=== PATIENT | female | born 1960 | race Caucasian/White ===

== ENCOUNTER 2020-04-28 09:07 | Outpatient (CLI) | payer MEDICARE, SELFPAY ==
--- NOTE | ~2020-04-28 | US_ITS ---
EXAMINATION: US soft tissue head and neck DATE: 04/28/2020 09:42 INDICATION: Left supraclavicular lump. TECHNIQUE: Multiple grayscale and Doppler ultrasound images of the neck were obtained. COMPARISON: Chest CT 04/03/2012 FINDINGS: There are multiple enlarged left supraclavicular nodes measuring up to 2.3 x 1.1 x 1.7 cm. IMPRESSION: 1. Left supraclavicular lymphadenopathy, which may be reactive lymphadenopathy or metastatic disease. Ultrasound-guided core needle biopsy is recommended. Reviewed, dictated and finalized at location A. TRIMMER
== END 2020-04-28 09:08 | disposition home or self-care (01) ==
PROVIDERS: PCP Internal Medicine; Visit Provider Nurse Practitioner
DX: R22.2 Localized swelling, mass and lump, trunk (principal)
CPT/HCPCS: 76536

== ENCOUNTER 2020-05-17 09:05 | Outpatient (CLI) | payer MEDICARE, SELFPAY ==
--- NOTE | ~2020-05-17 | US_ITS ---
EXAMINATION: US biopsy lymph node DATE: 05/17/2020 10:04 INDICATION: Left supraclavicular lymphadenopathy. TECHNIQUE: The procedure including the risks and benefits was discussed with the patient. Risks discu ssed included bleeding and infection. The patient understood the risks and agreed to proceed. The sk in overlying the left supraclavicular region was prepped and draped in usual sterile fashion. Anesth etic was administered with 1% lidocaine subcutaneously. An 18 gauge core biopsy needle was advanced under continuous ultrasound observation to the lesion of interest. 5 core biopsy specimens were obta ined. The needle was removed and the entry site was cleaned and dressed. Post procedure ultrasound demonstrated no hemorrhage. FINDINGS: Ultrasound images demonstrate multiple hypoechoic left supraclavicular lymph nodes which ap pear slightly decreased in size when compared with the earlier study. Subsequent images demonstrate b iopsy needle advanced into 3 of the largest lymph nodes. IMPRESSION: 1. Successful Ultrasound-guided biopsy of 3 of the largest of several prominent left supraclavicular lymph nodes which appear to have decreased slightly in size since the prior study favoring reactive l ymph nodes. Reviewed, dictated and finalized at location A. IMPRESSION: 1. Successful Ultrasound-guided biopsy of 3 of the largest of several prominent left supraclavicular lymph nodes which appear to have decreased slightly in si ze since the prior study favoring reactive lymph nodes.
== END 2020-05-17 09:06 | disposition home or self-care (01) ==
PROVIDERS: PCP Internal Medicine; Visit Provider Nurse Practitioner
DX: R22.2 Localized swelling, mass and lump, trunk (principal)
CPT/HCPCS: 38505; 76942; 88305; 88341; 88342; 88364; 88365

== ENCOUNTER 2020-05-30 08:08 | Outpatient (CLI) | payer MEDICARE, SELFPAY | END 2020-05-30 08:09 | disposition home or self-care (01) | LOC: ANHCOVIDVC 08:08 | PROVIDERS: PCP Internal Medicine | DX: Z23 Encounter for immunization (principal) | CPT/HCPCS: 0001A; 91300 ==

== ENCOUNTER 2020-06-20 08:03 | Outpatient (CLI) | payer MEDICARE, SELFPAY | END 2020-06-20 08:04 | disposition home or self-care (01) | LOC: ANHCOVIDVC 08:03 | PROVIDERS: PCP Internal Medicine | DX: Z23 Encounter for immunization (principal) | CPT/HCPCS: 0002A; 91300 ==

== ENCOUNTER 2023-01-08 08:18 | Outpatient (CLI) | payer MEDICARE, SELFPAY ==
[2023-01-08 16:35] LABS: Basophils Percent Auto 0.6 % (0.2-1.2); Eosinophils Absolute Auto 0.2 K/mm3 (0-0.3); Eosinophils Percent Auto 3.3 % (0-4.4); Hematocrit 43.4 % (37.0-47.0); Immature Granulocyte Absolute 0.02 K/mm3 (0.00-0.031); Immature Granulocyte Percent A 0.4 % (0-0.5); Lymphocytes Absolute Auto 0.71 K/mm3 (0.9-3.2); Lymphocytes Percent Auto 13.8 % (18.3-44.2); Mean Corpuscular HGB Conc 27.6 g/dl (32-36); Mean Corpuscular Hemoglobin 26.3 pg (26-34); Mean Platelet Volume 12.4 fl (7.4-10.4); Monocytes Absolute Auto 0.3 K/mm3 (0.1-0.6); Neutrophils Absolute Auto 3.9 K/mm3 (1.3-6.7); Neutrophils Percent Auto 75.9 % (45.5-73.1); Platelet Count Result 226 k/mm3 (150-375); Red Blood Count 4.57 M/mm3 (4.2-5.4); White Blood Count 5.2 K/mm3 (4.5-10.0)
[2023-01-08 17:22] LABS: Hypochromasia 1+ (NORMAL); Platelet Estimate Adequate (Adequate)
[2023-01-08 17:23] LABS: Ovalocytes 1+ (NORMAL); Schistocytes None Seen (NORMAL)
[2023-01-08 17:54] LABS: Alanine Aminotransferase 30 U/L (6-35); Albumin Level 4.5 g/dL (3.5-5.1); Alkaline Phosphatase 79 U/L (38-126); Anion Gap 10 mmol/L (8-16); Aspartate Amino Transferase 92 U/L (14-36); Bilirubin,Total 0.8 mg/dL (0.2-1.3); Blood Urea Nitrogen 16 mg/dL (7-17); Calcium 9.2 mg/dL (8.4-10.2); Carbon Dioxide 30 mmol/L (22-30); Chloride 98 mmol/L (98-107); Cholesterol 143 mg/dL (0-200); Estimated Glomerular Filt Rate > 60; Glucose 140 mg/dL (65-110); HDL Direct 44 mg/dL; Potassium 4.7 mmol/L (3.4-5.0); Sodium 138 mmol/L (137-145); Triglycerides 113 mg/dL (<150)
[2023-01-08 18:05] LABS: LDL Cholesterol Direct 64 mg/dL
[2023-01-08 18:10] LABS: Creatinine Urine 104.8 mg/dL
[2023-01-08 18:36] LABS: MALB Creatinine Ratio 292.4 mg/g (0-30); Microalbumin Urine Random 306.4 mg/L (0-16.7)
[2023-01-08 19:03] LABS: Hemoglobin A1C 6.2 % (<5.7)
== END 2023-01-08 08:19 | disposition home or self-care (01) ==
LOC: ANHWCLAB 08:19
PROVIDERS: PCP Family Medicine; Visit Provider Nurse Practitioner Family
DX: E11.9 Type 2 diabetes mellitus without complications (principal); E78.2 Mixed hyperlipidemia; Z00.00 Encounter for general adult medical examination without abnormal findings
CPT/HCPCS: 36415; 80053; 80061; 82043; 83036; 85025

== ENCOUNTER 2023-03-17 23:11 | Inpatient (IN) | payer MEDICARE, SELFPAY ==
--- NOTE | ~2023-03-17 | CT_ITS ---
Clinical Indication: Dyspnea CT Scan of the Chest with Contrast: Technique: Contiguous sections were acquired throughout the chest after intravenous administration of 100 cc of Omnipaque 350. Dose reduction technique was used on this scan by utilizing automated expos ure control and iterative reconstruction technique. The dose-length product (DLP) was 1321.03 mGy-cm. Findings: There is probable right paratracheal and subcarinal lymphadenopathy. There is no filling defect in th e pulmonary arterial tree to suggest pulmonary embolus. There is no evidence of aortic dissection or aneurysm. There is no evidence of pleural or pericardial effusion. The lungs are clear, aside from probable minimal dependent atelectatic changes. Images through the upper abdomen reveal small amount of perihepatic ascites. Impression: No evidence of pulmonary embolus, aortic dissection, or aortic aneurysm. Probable minimal atelectatic changes, otherwise clear lungs. Probable right paratracheal subcarinal lymphadenopathy, nonspecific. Findings could reflect reactive/ inflammatory lymph nodes versus potentially lymphoma or other metastatic disease. Correlate clinicall y. Consider follow-up exam versus additional workup at this time, as indicated. Comparison with any p rior outside chest CTs would be useful to assess for chronicity of these nodes. Reviewed, dictated and finalized at location M. ING REPRESENTATIVE Impression: No evidence of pulmonary embolus, aortic dissection, or aortic aneurysm. Probable minimal atelectatic changes, otherwise clear lungs. Probable right paratracheal subcarinal lymphadenopathy, nonspecific. Findings c ould reflect reactive/inflammatory lymph nodes versus potentially lymphoma or o ther metastatic disease. Correlate clinically. Consider follow-up exam versus a dditional workup at this time, as indicated. Comparison with any prior outside chest CTs would be useful to assess for chronicity of these nodes.
--- NOTE | ~2023-03-17 | XR_ITS ---
Portable chest x-ray Comparison: 06/03/2015 Clinical History: Dyspnea Findings: Lungs are clear, without focal consolidation or pleural effusion. Cardiomediastinal silho uette is stable. Bones and soft tissues are unremarkable. Impression: No acute abnormality. Stable cardiomegaly and possible pulmonary artery hypertension. Reviewed, dictated and finalized at location . [employer] Impression: No acute abnormality. Stable cardiomegaly and possible pulmonary artery hypertension.
[2023-03-17 23:07] VITALS: BP 151/113; PULSE 147; RESP 20; TEMP 36.5; O2SAT 89
--- NOTE | 2023-03-17 23:10 | ECG_ITS ---
Measurements Intervals [place] Rate: 138 P: [place]: 0 QRS: -27 QRSD: 96 T: 123 QT: 289 QTc: 439 Interpretive Statements ATRIAL FIBRILLATION WITH RAPID VENTRICULAR RESPONSE ST-T WAVE ABNORMALITY IN HIGH LATERAL LEADS- CONSIDER ISCHEMIA BASELINE WANDER- I, II, AVR, AVL, V2 ABNORMAL ECG NO PREVIOUS ECG AVAILABLE FOR COMPARISON Electronically Signed On 03-18-2023 8:48:17 REHABILITATION SPECIALIST by Jono Segal D.O.
[2023-03-17 23:28] LABS: Alveolar/Arterial O2 Gradient 586.5 mmHg; Base Excess ABG 2.9 mEq/l (+/-2.0); Carboxyhemoglobin 0.8 % THb (0-2.0); Device NON-REBREATHER MASK; Fractional Inspired Oxygen 100 %; HCO3 ABG 29.9 mEq/l (22.0-26.0); Methemoglobin ABG 0.2 %THb (0-1.5); Modified Allen's Test Pass; Oxygen Content ABG 15.2 %vol (16.0-22.0); Oxygen Saturation ABG 92.2 % (95.0-100.0); Oxyhemoglobin 90.3 % THb (90.0-100.0); PCO2 ABG 57.8 mmHg (35.0-45.0); PO2 ABG 68.7 mmHg (80.0-100.0); PO2 FiO2 Ratio Arterial Blood 0.69 %; Reduced Hemoglobin 8.7 %THb (0-5.0); Site Drawn RIGHT RADIAL; Total Hemoglobin 11.9 g/dL (12.0-18.0); pH ABG 7.332 (7.350-7.450)
[2023-03-17 23:30] VITALS: PULSE 112; RESP 24; O2SAT 94; O2SAT 97
--- NOTE | 2023-03-17 23:43 | PC.NURSE ---
2322 10 mg Diltiazem administered IV push per Dr. Patricio verbal order. 2342 10 mg Diltiazem administered IV push per Dr. Patricio verbal order.
[2023-03-17 23:46] LABS: Basophils Percent Auto 0.5 % (0.2-1.2); Eosinophils Absolute Auto 0.1 K/mm3 (0-0.3); Hematocrit 41.4 % (37.0-47.0); Hemoglobin 11.2 g/dL (12.0-15.0); Immature Granulocyte Absolute 0.04 K/mm3 (0.00-0.031); Immature Granulocyte Percent A 0.6 % (0-0.5); Lymphocytes Absolute Auto 0.67 K/mm3 (0.9-3.2); Lymphocytes Percent Auto 10.3 % (18.3-44.2); Mean Corpuscular HGB Conc 27.1 g/dl (32-36); Mean Corpuscular Hemoglobin 25.6 pg (26-34); Mean Corpuscular Volume 94.7 fl (80-100); Mean Platelet Volume 12.4 fl (7.4-10.4); Monocytes Absolute Auto 0.4 K/mm3 (0.1-0.6); Monocytes Percent Auto 6.8 % (2.6-8.5); Neutrophils Absolute Auto 5.2 K/mm3 (1.3-6.7); Neutrophils Percent Auto 79.8 % (45.5-73.1); Nucleated Red Blood Cells Perc 0.5 % (0.0-0.2); Platelet Count Result 218 k/mm3 (150-375); Red Blood Count 4.37 M/mm3 (4.2-5.4); Red Cell Distribution Width 15.9 % (11.5-14.5); White Blood Count 6.5 K/mm3 (4.5-10.0)
[2023-03-17 23:55] LABS: Alanine Aminotransferase 20 U/L (6-35); Albumin Level 4.4 g/dL (3.5-5.1); Alkaline Phosphatase 78 U/L (38-126); Anion Gap 11 mmol/L (8-16); Aspartate Amino Transferase 31 U/L (14-36); Bilirubin,Total 0.7 mg/dL (0.2-1.3); Blood Urea Nitrogen 17 mg/dL (7-17); Carbon Dioxide 31 mmol/L (22-30); Chloride 98 mmol/L (98-107); Estimated CRCL calculation 98 ml/min; Estimated Glomerular Filt Rate > 60; Glucose 186 mg/dL (65-110); Potassium 4.4 mmol/L (3.4-5.0); Sodium 140 mmol/L (137-145)
[2023-03-17 23:56] LABS: INR 1.5; Prothrombin Time 19.4 Seconds (11.1-14.7)
[2023-03-17 23:57] LABS: Partial Thromboplastin Time 35.9 SECONDS (22.3-36.8)
[2023-03-17 23:58] LABS: Lactic Acid Reflex 3.2 mmol/L (0.7-2.0)
[2023-03-17 23:59] LABS: Platelet Estimate Adequate (Adequate)
[2023-03-18] VITALS (29 sets, daily range): BP systolic 114–150; BP diastolic 66–102; PULSE 87–128; RESP 14–26; TEMP 35.8–36.4; O2SAT 92–99; BMI 69.3
[2023-03-18] LABS: Hypochromasia 1+ (NORMAL)
[2023-03-18 00:01] LABS: Anisocytosis 1+ (NORMAL)
[2023-03-18 00:02] LABS: Burr Cells 1+ (NORMAL); Schistocytes None Seen (NORMAL)
[2023-03-18 00:03] LABS: D Dimer 3.22 ug/mL (<0.48); Lipase 97 U/L (23-300); Magnesium 1.5 mg/dL (1.6-2.3); Phosphorus 4.1 mg/dL (2.5-4.5)
[2023-03-18 00:08] LABS: Troponin I < 0.012 ng/mL (0.000-0.034)
[2023-03-18 00:21] LABS: Creatine Kinase 27 U/L (30-135)
[2023-03-18 01:07] LABS: NT Pro B Type Natriuretic Pept 2520 pg/mL (19.9-100)
--- NOTE | 2023-03-18 01:24 | ED.GENADULT ---
HPI - General Adult General Chief complaint: Shortness of Breath/Dyspnea Stated complaint: a-fib with rvr Time Seen by Provider: 03/17/23 23:26 History of Present Illness HPI narrative: This is a 62-year-old female presenting with shortness of breath. Patient was sitting on her sofa when she developed acute onset of shortness of breath. EMS was called found her to be satting 70% on her CPAP. She is also found in AFib with RVR with a rate of 190. They were unable to get a blood pressure at that time so gave her amiodarone 150 mg. When the patient arrived here she was saturating in the 70s. Heart rate 150 AFib with RVR. Only complaint at this time is shortness of breath but no other complaints. Related Data Home Medications Medication Instructions Recorded Confirmed lancets #50 ea 01/02/19 01/08/23 sotalol 120 mg tablet 120 mg PO Q12H 01/20/19 01/08/23 omega 0-bqb-yti-fish oil 300 1 cap PO DAILY 11/01/20 01/08/23 mg-1,000 mg capsule (Fish Oil) rivaroxaban 20 mg tablet (Xarelto) 20 mg PO DAILY 10/12/21 01/08/23 aspirin 81 mg tablet,delayed 81 mg PO DAILY 06/27/22 01/08/23 release (Adult Low Dose Aspirin) fluticasone propionate 50 1 - 2 spray intranasal DAILY PRN 01/08/23 01/08/23 mcg/actuation nasal spray,suspension (Flonase Allergy Relief) Allergies Allergy/AdvReac Type Severity Reaction Status Date / Time No Known Allergies Allergy Verified 03/18/23 02:57 [facility] Past Medical History Medical History Chronic atrial fibrillation Colostomy in place COVID-19 Essential (primary) hypertension History of colon cancer Hypovitaminosis D Mixed hyperlipidemia Morbid obesity FREDI (obstructive sleep apnea) Type 2 diabetes mellitus without complication Surgical History Surgical History History of colectomy History of partial hysterectomy Family History Family History Sibling Diabetes mellitus Father Hypertension Family history of cardiovascular disease, Onset Age: 55 Cerebrovascular accident, Onset Age: 55 Mother Family history of malignant neoplasm of ovary Other Family history of malignant neoplasm Social History Social History Smoking status: Former smoker Second hand tobacco smoke exposure: Yes Smoking end date: 02/18/82 Alcohol intake: never Substance use: never Exam Narrative: APPEARANCE: Patient is in respiratory distress. She appears chronically unwell. Older than her stated age Head: atraumatic. EYES: EOMI, NOSE: Atraumatic NECK: Trachea midline RESPIRATORY: Tachypneic, scattered crackles CARDIOVASCULAR: Tachycardic, body habitus limits exam for edema. ABDOMINAL: Soft, obese, colostomy bag in place MUSCULOSKELETAl: No obvious deformities NEURO: Alert. Moving 4/4 extremities SKIN:: Cool dry PSYCHIATRIC: Normal affect Course Vital Signs Vital signs: Vital Signs Temperature 97.7 F 03/17/23 23:07 Pulse Rate 147 H 03/17/23 23:07 Respiratory Rate 20 03/17/23 23:07 Blood Pressure 151/113 H 03/17/23 23:07 Pulse Oximetry 89 L 03/17/23 23:07 Oxygen Delivery Non-Rebreather Mask 03/17/23 23:07 Oxygen Flow Rate 15 03/17/23 23:07 Temperature 97.7 F 03/17/23 23:07 Pulse Rate 111 H 03/18/23 06:05 Respiratory Rate 23 H 03/18/23 05:20 Blood Pressure 132/96 H 03/18/23 06:05 Pulse Oximetry 97 03/18/23 05:20 Oxygen Delivery BiPAP 03/18/23 05:20 Oxygen Flow Rate 15 03/17/23 23:30 Medical Decision Making [facility] Narrative Medical decision making narrative: -Course: 62-year-old female presenting with respiratory failure and AFib with RVR. Patient placed on BiPAP. AFib with RVR controlled with diltiazem drip. Patient is already on anticoagulation. Workup showed mild uptrending troponins which
[2023-03-18] MEDS: MAGNESIUM SULF 2 GM/WATER 50ML 2 GM/50 ML BAG IVPB (01:45)
[2023-03-18] MEDS: dilTIAZem 100 MG/100 ML 100 MG/100 ML BAG IV CONT (01:47)
[2023-03-18 02:39] LABS: Reflex Lactic Acid Yes or No Add Lactic
[2023-03-18 03:38] LABS: Appearance Urine Cloudy (Clear); Bacteria Urine None Seen /hpf; Bilirubin Urine Negative (Negative); Blood Urine 3+ (Negative); Color Urine Dark Yellow (Yellow); Glucose Urine UA Negative (Negative); Ketones Urine Trace mg/dL (Negative); Leukocyte Esterase Ur Trace LEU/UL (Negative); Mucus Urine Present /lpf; Need Manual Microscopic Reviewed; Nitrate Urine Negative (Negative); Protein Urine 2+ mg/dL (Negative); RBC Urine >100 /hpf (0-2); Specific Grav Ur 1.024 (1.001-1.035); Squamous Epithelial Cell Urine None seen /hpf (Few); WBC Urine 0-5 /hpf
[2023-03-18 03:55] LABS: Add Urine Microscopic? YES
[2023-03-18 04:58] LABS: Lactic Acid 2.1 mmol/L (0.7-2.0)
[2023-03-18 05:15] LABS: Troponin I 0.109 ng/mL (0.000-0.034)
--- NOTE | 2023-03-18 09:04 | ADMGEN ---
This patient, Gabby Mosley, was admitted to IMU Room 204-01. Patient/family oriented to hospital policies and general routines including ID bracelet, bed and alarms, visiting hours, pain management, procedures, bathroom and other care routines, personal items, smoking policy, room service/diet, and visiting hours. Information on how to activate the Rapid Response Team has been discussed. Patient/Family are encouraged to report perceived risks to care and to ask questions if they do not understand what they are told or what they should do.
--- NOTE | 2023-03-18 11:02 | PM.IMHP ---
H&P: HPI History of Present Illness Date/Time: 03/18/23 11:02 Chief Complaint: Patient brought to the ER for by EMS for acute shortness of breath and palpitations Narrative: 62 years old white female with morbid obesity and chronic medical issues was sitting at her so fall at home when she suddenly developed shortness of breath. EMS was called and patient was brought to the ER for evaluation. She was initially satting 70% on her CPAP at home. She had AFib with RVR with heart rate of 190. She received amiodarone 150 mg IV and was started on BiPAP in the ER. Received 2 loading doses of IV Cardizem and started on Cardizem drip for better control of her heart rate. She denies any chest pain although she has minimally elevated cardiac enzymes. She is being admitted to the medical floor the cardiology evaluation, monitoring of cardiac enzymes, IV Cardizem drip, further management and work up. Review of Systems Review of Systems: He denies any chest fever rigor chills, nausea vomiting or loss of consciousness. She complained of shortness of breath, palpitations, feeling weak tired and fatigued All systems reviewed & are unremarkable except as noted in HPI and below PMFSH Past Medical History Medical History Chronic atrial fibrillation Colostomy in place COVID-19 Essential (primary) hypertension History of colon cancer Hypovitaminosis D Mixed hyperlipidemia Morbid obesity FREDI (obstructive sleep apnea) Type 2 diabetes mellitus without complication Surgical History Surgical History History of colectomy History of partial hysterectomy Family History Family History Sibling Diabetes mellitus Father Hypertension Family history of cardiovascular disease, Onset Age: 55 Cerebrovascular accident, Onset Age: 55 Mother Family history of malignant neoplasm of ovary Other Family history of malignant neoplasm Social History Social History Smoking status: Never smoker Second hand tobacco smoke exposure: Yes Smoking end date: 02/18/82 Alcohol intake: never Substance use: never Do You Feel Safe in your Home?: Yes Lack of Transportation: No Lack of Food: Never True Current Housing: I Have Housing Concerned About Future Housing: No Difficulty Paying Gas/Electric Bills: No Difficulty Paying for Meds: No Currently Unemployed: No Education: High School Diploma/GED Difficulty w/ Childcare or Family Care: No Spiritual care concerns: No Meds Home Medications and Allergies Home Medications Medication Instructions Recorded Confirmed Type lancets #50 ea 01/02/19 01/08/23 History sotalol 120 mg tablet 120 mg PO Q12H 01/20/19 03/18/23 History blood sugar diagnostic (OneTouch See Rx Instructions .Route 06/07/20 01/08/23 Rx Verio test strips) .COMPLEX #100 ea omega 3-ezl-qgi-fish oil 300 1 cap PO DAILY 11/01/20 03/18/23 History mg-1,000 mg capsule (Fish Oil) rivaroxaban 20 mg tablet (Xarelto) 20 mg PO DAILY 10/12/21 03/18/23 History Symbicort 80 mcg-4.5 mcg/actuation See Rx Instructions .Route 03/15/22 03/18/23 Rx HFA aerosol inhaler .COMPLEX #11 grams (budesonide-formoterol) aspirin 81 mg tablet,delayed 81 mg PO DAILY 06/27/22 03/18/23 History release (Adult Low Dose Aspirin) albuterol sulfate 90 mcg/actuation 1 - 2 inh inhalation Q4-6H PRN 07/02/22 03/18/23 Rx aerosol inhaler (Ventolin HFA) shortness of breath or wheezing #8.5 grams ezetimibe 10 mg tablet See Rx Instructions .Route 01/08/23 03/18/23 Rx .COMPLEX #90 tabs atorvastatin 10 mg tablet 10 mg PO DAILY 03/18/23 03/18/23 History lisinopril 20 mg tablet 20 mg PO BID 03/18/23 03/18/23 History metformin 1,000 mg tablet 1,000 mg PO BID 03/18/23 03/18/23 History pioglitazone 15 mg tablet 15 mg PO DAILY 03/18/23
--- NOTE | 2023-03-18 11:32 | PM.CNCAR ---
Assessment and Plan Assessment and plan (1) Atrial fibrillation with rapid ventricular response: Code(s): I48.91 - Unspecified atrial fibrillation Status: Acute Assessment and Plan: Patient with a history of paroxysmal atrial fibrillation generally doing very well on sotalol 120 mg twice daily which she is absolutely compliant. She has been maintained on systemic anticoagulation Xarelto 20 mg daily. She denies missing a single dose in this regard. She presents with acute onset AFib with RVR in acute hypoxic respiratory failure now better stabilized with better control over heart rate. She remains in AFib on diltiazem infusion 15 milligrams/hour. Sotalol has yet to be resumed since admission from the ER. At length we discussed multiple options with regards to medical management and control of atrial fibrillation. We discussed alternative antiarrhythmic therapy, however, if discontinuation of sotalol were to be entertained she would require washout peripherally for least 4 days prior to initiation of alternative. That being said am not convinced this necessarily represents a complete failure of her sotalol yet she did have a significant recurrence in which he was highly symptomatic which raises this possibility. Discussed attempting to avoid concomitant AV estrella blocking agents with the use of sotalol, however, this may be reasonable as tolerated as an alternative. We also discussed cardioversion to restore sinus rhythm. Given her underlying O2 dependence, COPD, morbid obesity, FREDI on CPAP if this were to be entertained cardioversion ideal with Anesthesiology utilizing propofol would be the safest management strategy. At this time I recommend resumption of sotalol 120 mg twice daily. Will attempt to wean diltiazem off with regards to heart rate control and symptoms further recommendations to follow. Patient verbalized understanding and agreed with plan of care. All questions answered to her satisfaction. With heart rates better controlled repeat 2D echocardiogram to assess LV function, chamber size, valve pathology pulmonary pressures warranted. TSH normal 3.070. We discussed concerning nature of her presentation as she has never had experienced similar to this related to atrial fibrillation with RVR. Need to exclude acute coronary syndrome although appears less likely given symptoms we need to trend troponins, obtain echocardiogram for further recommendation to follow. (2) Elevated troponin: Code(s): R79.89 - Other specified abnormal findings of blood chemistry Status: Acute Assessment and Plan: Mild troponin elevation without anginal symptoms most likely consistent with demand ischemia in setting of AFib with RVR in hypoxic respiratory failure without suggestive of acute coronary syndrome and/or plaque rupture. Trend troponin, repeat 12 lead ECG. Patient has no known history of underlying CAD. Depending on troponin trend and echocardiogram may consider ischemic evaluation on outpatient basis. If significant troponin elevation is noted be on further recommendations regarding ischemic evaluation will be forthcoming. She is fully anticoagulated on Xarelto at this time nonetheless and if invasive angiography were felt to be warranted this would need to be held for 48 hours to reduce bleeding risk associated with invasive procedure (3) Acute respiratory failure with hypoxia and hypercapnia: Code(s): J96.01 - Acute respiratory failure with hypoxia; J96.02 - Acute respiratory failure with hypercapnia Status: Acute Assessment and Plan: Patient presented with acute life-threatening hypoxic respiratory failure in AFib with RVR requiring continuous BiPAP and additional O2 supplementation in now improved but remains above baseline on 5 L nasal cannula. Patient chronic respiratory failure on 3 L nasal cannula at home at rest. Continue bronchodilator therapy as warranted, Advair, O2 supplementation and noninva
[2023-03-18] MEDS: ASPIRIN 81 MG ENTERIC TABLET PO (12:04)
[2023-03-18] MEDS: SOTALOL HCL 40 MG TABLET 120 MG PO ×2 (12:04→19:53)
[2023-03-18] MEDS: PIOGLITAZONE HCL 15 MG TAB PO (12:05)
[2023-03-18] MEDS: OMEGA 3 POLYUNSAT FATTY ACIDS 1 GM CAP PO (12:05)
[2023-03-18] MEDS: ATORVASTATIN 10 MG TABLET PO (12:05)
[2023-03-18] MEDS: EZETIMIBE 10 MG TABLET BY MOUTH (12:05)
--- NOTE | 2023-03-18 12:24 | ECHO_ITS ---
Patient Info Name: Gabby Mosley Age: 62 years : 1960 Gender: Female Ht: 65 in Wt: 416 lbs BSA: 3.08 m2 HR: 78 bpm BP: 135 / 94 mmHg Heart Rhythm: Atrial Fibrillation Technical Quality: Fair Exam Date: 03/18/2023 3:05 PM Exam Location: Echo Lab Exam Room: [facility] Patient Status: Inpatient Admit Date: 03/18/2023 Staff Ordering Physician: Wilner Damian MD Ux Design Manager: Kandice Iverson RDCS Attending Provider: Jorge Ma MD Referring Physician: Rickie HAMPTON; Exam Type: CA echo dop color flow w con Study Info Indications - afib rvr elevated troponins Complete two-dimensional, color flow and Doppler transthoracic echocardiogram is performed with contrast to opacify the left ventricle and to improve the deliniation of the left ventricle endocardial borders. Contrast/Agitated Saline Contrast/Ag. Saline: Definity Amount: 3.00 ml Administered By: Kandice Iverson [facility] Existing IV Access: Yes IV Access Condition: patent with no signs of infiltration Summary 1. Technically difficult study with limited views. Definity contrast administered. 2. Left ventricular chamber dimension is normal. 3. Left ventricular systolic function is hyperdynamic, estimated at >70%. 4. There is moderately increased left ventricular wall thickness. 5. The left ventricular diastolic function is indeterminate. 6. Left atrial chamber dimension is moderately enlarged. 7. Right atrial chamber dimension is severely enlarged. 8. There is no aortic valve stenosis. 9. There is mild mitral valve regurgitation. 10. There is mild tricuspid valve regurgitation. 11. Severe pulmonary hypertension, estimated pulmonary arterial systolic pressure is 71 mmHg. Left Ventricle Left ventricular chamber dimension is normal. Left ventricular systolic function is hyperdynamic, estimated at >70%. There is moderately increased left ventricular wall thickness. The left ventricular diastolic function is indeterminate. Technically difficult study with limited views. Definity contrast administered. Right Ventricle Right ventricular chamber dimension is normal. Right ventricular systolic function is reduced. Left Atria Left atrial chamber dimension is moderately enlarged. Right Atria Right atrial chamber dimension is severely enlarged. Aortic Valve The aortic valve is trileaflet. There is mild aortic valve sclerosis. There is no aortic valve stenosis. There is no aortic valve regurgitation. Pulmonic Valve The pulmonic valve is not well visualized. There is trace pulmonic regurgitation. Mitral Valve The mitral valve has normal leaflets. There is mild mitral valve regurgitation. The mitral valve annulus is mildly calcified. Tricuspid Valve The tricuspid valve leaflets are normal. There is mild tricuspid valve regurgitation. Severe pulmonary hypertension, estimated pulmonary arterial systolic pressure is 71 mmHg. Pericardium/Pleural The pericardium appears not well visualized. There is no pericardial effusion. Inferior Vena Cava Normal inferior vena cava with >50% collapse upon inspiration consistent with elevated right atrial pressure, 10 mmHg. Aorta The aortic root size at the sinus of Valsalva is normal. There is mild aortic atherosclerosis. Left Ventricular Outflow Tract Name Value Normal LVOT 2D
[2023-03-18 12:26] LABS: Basophils Percent Auto 0.5 % (0.2-1.2); Eosinophils Absolute Auto 0.2 K/mm3 (0-0.3); Eosinophils Percent Auto 2.9 % (0-4.4); Hematocrit 39.3 % (37.0-47.0); Hemoglobin 11.1 g/dL (12.0-15.0); Immature Granulocyte Absolute 0.03 K/mm3 (0.00-0.031); Immature Granulocyte Percent A 0.5 % (0-0.5); Lymphocytes Absolute Auto 0.76 K/mm3 (0.9-3.2); Lymphocytes Percent Auto 13.6 % (18.3-44.2); Mean Corpuscular HGB Conc 28.2 g/dl (32-36); Mean Corpuscular Hemoglobin 25.6 pg (26-34); Mean Corpuscular Volume 90.8 fl (80-100); Mean Platelet Volume 12.3 fl (7.4-10.4); Monocytes Absolute Auto 0.4 K/mm3 (0.1-0.6); Monocytes Percent Auto 7.9 % (2.6-8.5); Neutrophils Absolute Auto 4.2 K/mm3 (1.3-6.7); Neutrophils Percent Auto 74.6 % (45.5-73.1); Platelet Count Result 196 k/mm3 (150-375); Red Blood Count 4.33 M/mm3 (4.2-5.4); White Blood Count 5.6 K/mm3 (4.5-10.0)
--- NOTE | 2023-03-18 12:27 | ECG_ITS ---
Measurements Intervals [place] Rate: 95 P: [place]: 0 QRS: -20 QRSD: 102 T: 135 QT: 319 QTc: 401 Interpretive Statements ATRIAL FIBRILLATION NONSPECIFIC ST & T-WAVE ABNORMALITY- ANTEROLAT/HIGH LAT LEADS BASELINE ARTIFACT- V3 ABNORMAL ECG COMPARED TO ECG 03/17/2023 23:11:24 HEART RATE HAS DECREASED Electronically Signed On 03-18-2023 14:10:38 [employer] by Jono Segal D.O.
[2023-03-18 12:38] LABS: Magnesium 1.8 mg/dL (1.6-2.3); Phosphorus 3.5 mg/dL (2.5-4.5)
[2023-03-18] MEDS: dilTIAZem 100 MG/100 ML 100 MG/100 ML BAG 10 MG IV CONT (12:50)
[2023-03-18 12:51] LABS: Troponin I 0.123 ng/mL (0.000-0.034)
[2023-03-18 12:53] LABS: Glucose Point of Care 105 mg/dl (65-105)
[2023-03-18] MEDS: PERFLUTREN LIPID MICROSPHERES 1.5 ML VIAL DILUTED TO 10 ML TOTAL VOLUME IV PUSH (15:50)
--- NOTE | 2023-03-18 16:08 | IVDEFINITY ---
Prior to administration of IV Definity the patient was educated on the risks and benefits of the imaging enhancing agent including potential adverse side effects. The patient verbalized understanding. Allergies were verified. No exclusion criteria were identified and at least one of the following inclusion criteria were met: 1) physician request, 2) patient technically difficult to image (per the [place] [employer] guidelines of two or more segments not discernable within the apical view), or 3) questionable left ventricular function. ?
[2023-03-18 16:42] LABS: Glucose Point of Care 131 mg/dl (65-105)
[2023-03-18] MEDS: lisinopriL 20 MG TABLET PO (17:50)
[2023-03-18] MEDS: RIVAROXABAN 20 MG TABLET PO (18:29)
--- NOTE | 2023-03-18 19:10 | PC.NURSE ---
Pt told nurse she ambulated with the help of her spouse and no help from staff to the bedside commode. Pt and spouse informed to not ambulate without the help of staff for safety precautions. Per CCT pt spouse suspected of turning off bed alarm. Nurse also informed pt and spouse that the bed alarm was turned back on for safety. Pt and spouse both verbalized understanding.
[2023-03-18] MEDS: FLUTICASONE/SALMETEROL 115-21 MCG INHALER 1 PUFF 2 PUFF INHALATION (20:31)
[2023-03-18 20:51] LABS: Glucose Point of Care 126 mg/dl (65-105)
[2023-03-19] VITALS (26 sets, daily range): BP systolic 110–138; BP diastolic 50–91; PULSE 89–111; RESP 18–22; TEMP 35.9–36.6; O2SAT 91–97
[2023-03-19] MEDS: dilTIAZem 100 MG/100 ML 100 MG/100 ML BAG 10 MG IV CONT ×2 (02:16→12:56)
[2023-03-19 05:14] LABS: Basophils Percent Auto 0.5 % (0.2-1.2); Eosinophils Absolute Auto 0.1 K/mm3 (0-0.3); Eosinophils Percent Auto 2.4 % (0-4.4); Hematocrit 34.4 % (37.0-47.0); Hemoglobin 9.7 g/dL (12.0-15.0); Immature Granulocyte Absolute 0.02 K/mm3 (0.00-0.031); Immature Granulocyte Percent A 0.5 % (0-0.5); Lymphocytes Absolute Auto 0.75 K/mm3 (0.9-3.2); Lymphocytes Percent Auto 18.1 % (18.3-44.2); Mean Corpuscular HGB Conc 28.2 g/dl (32-36); Mean Corpuscular Hemoglobin 25.8 pg (26-34); Mean Corpuscular Volume 91.5 fl (80-100); Mean Platelet Volume 12.6 fl (7.4-10.4); Monocytes Absolute Auto 0.4 K/mm3 (0.1-0.6); Monocytes Percent Auto 9.4 % (2.6-8.5); Neutrophils Absolute Auto 2.9 K/mm3 (1.3-6.7); Neutrophils Percent Auto 69.1 % (45.5-73.1); Platelet Count Result 187 k/mm3 (150-375); Red Blood Count 3.76 M/mm3 (4.2-5.4); Red Cell Distribution Width 16.2 % (11.5-14.5); White Blood Count 4.2 K/mm3 (4.5-10.0)
[2023-03-19 05:28] LABS: Anion Gap 8 mmol/L (8-16); Blood Urea Nitrogen 15 mg/dL (7-17); Calcium 8.7 mg/dL (8.4-10.2); Carbon Dioxide 34 mmol/L (22-30); Chloride 98 mmol/L (98-107); Estimated CRCL calculation 109 ml/min; Estimated Glomerular Filt Rate > 60; Glucose 116 mg/dL (65-110); Sodium 140 mmol/L (137-145)
[2023-03-19 05:52] LABS: Anisocytosis 1+ (NORMAL); Hypochromasia 1+ (NORMAL); Macrocytosis 1+ (NORMAL); Platelet Estimate Adequate (Adequate); Polychromasia 1+ (NORMAL); Schistocytes None Seen (NORMAL)
[2023-03-19 07:56] LABS: Glucose Point of Care 107 mg/dl (65-105)
[2023-03-19] MEDS: OMEGA 3 POLYUNSAT FATTY ACIDS 1 GM CAP PO (08:10)
[2023-03-19] MEDS: ASPIRIN 81 MG ENTERIC TABLET PO (08:10)
[2023-03-19] MEDS: PIOGLITAZONE HCL 15 MG TAB PO (08:10)
[2023-03-19] MEDS: lisinopriL 20 MG TABLET PO ×2 (08:10→17:00)
[2023-03-19] MEDS: ATORVASTATIN 10 MG TABLET PO (08:10)
[2023-03-19] MEDS: SOTALOL HCL 40 MG TABLET 120 MG PO ×2 (08:10→20:15)
[2023-03-19] MEDS: EZETIMIBE 10 MG TABLET BY MOUTH (08:11)
[2023-03-19] MEDS: FLUTICASONE/SALMETEROL 115-21 MCG INHALER 1 PUFF 2 PUFF INHALATION ×2 (09:04→19:40)
[2023-03-19 09:27] LABS: Troponin I 0.073 ng/mL (0.000-0.034)
--- NOTE | 2023-03-19 10:01 | PDONCCN ---
HPI - Date of Consult Date/Time: 03/19/23 16:24 <Jeffy Davila - 03/19/23 16:26> 03/19/23 10:01 <Yvonne Green - 03/19/23 10:07> Requesting Physician: Jorge Ma MD <Jeffy Davila - 03/19/23 16:26> Jorge Ma MD <Yvonne Green - 03/19/23 10:07> Primary Care Provider: Sloan Simms MD <Jeffy Davila - 03/19/23 16:26> Sloan Simms MD <Yvonne Green - 03/19/23 10:07> - Consult Narrative Reason for consult: Lymphadenopathy <Yvonne Green - 03/19/23 10:07> Narrative: Gabby Mosley is a 62 year old female <Jeffy Davila - 03/19/23 16:26> Gabby Mosley is a 62 year old female with a past medical history of morbid obesity, Afib, DM2, HTN, HLD, COPD, FREDI, and asthma. She called EMS after being short of breath. She was found to be in Afib with RVR on presentation to the ED and was put on a Dilt drip. She has a history of Afib and has been on sotalol for maintenance and has been tolerating that well. She is typically on 3L at home and 5L with exertion NC. She is on 5L NC at rest right now. She has a history of colon cancer in [id number]. She underwent 5FU chemotherapy and radiation prior to surgery. She then went under surgical resection and 1 lymphnode was found to be positive. She then underwent chemotherapy again but unsure what kind she got. Her last colonoscopy was in . She denies any blood in her stool or urine. Denies a true smoking history but has been around second hand smoke. Denies fatigue, weight loss, or night sweats. Denies frequent infections. She endorses wanting to lose weight due to her immobility. <Yvonne Green - 03/19/23 10:16> Review of Systems - Review of Systems All systems reviewed & are unremarkable except as noted in HPI and bel <Samir Greenne 03/19/23 10:07> - Neurologic Reports system reviewed and no additional complaints, except as documented <NormaYvonne 03/19/23 10:07> [facility] Medical History: Medical History (Last Reviewed 03/18/23 @ 11:32 by Wilner Damian MD) Chronic atrial fibrillation Colostomy in place COVID-19 Essential (primary) hypertension History of colon cancer Hypovitaminosis D Mixed hyperlipidemia Morbid obesity FREDI (obstructive sleep apnea) Type 2 diabetes mellitus without complication <Jeffy Davila - 03/19/23 16:26> Medical History (Last Reviewed 03/18/23 @ 11:32 by Wilner Damian MD) Chronic atrial fibrillation Colostomy in place COVID-19 Essential (primary) hypertension History of colon cancer Hypovitaminosis D Mixed hyperlipidemia Morbid obesity FREDI (obstructive sleep apnea) Type 2 diabetes mellitus without complication <TaekirstenYvonne 03/19/23 10:07> Surgical History: Surgical History (Last Reviewed 03/18/23 @ 11:32 by Wilner Damian MD) History of colectomy History of partial hysterectomy <Jeffy Davila - 03/19/23 16:26> Surgical History (Last Reviewed 03/18/23 @ 11:32 by Wilner Damian MD) History of colectomy History of partial hysterectomy <TaekirstenYvonne - 03/19/23 10:07> Family History: Family History (Last Reviewed 03/18/23 @ 11:32 by Wilner Damian MD) Sibling Diabetes mellitus Father Hypertension Family history of cardiovascular disease, Onset Age: 55 Cerebrovascular accident, Onset Age: 55 Mother Family history of malignant neoplasm of ovary Other Family history of malignant neoplasm <Jeffy Davila - 03/19/23 16:26> Family History (Last Reviewed 03/18/23 @ 11:32 by Wilner Damian MD) Sibling Diabetes mellitus Father Hypertension Family history of cardiovascular disease, Onset Age: 55 Cerebrovascular accident, Onset Age: 55 Mother Family history of malignant neoplasm of ovary Other Family history of malignant neoplasm <NormaYvonne 03/19/23 10:07> -
[2023-03-19 11:54] LABS: Glucose Point of Care 138 mg/dl (65-105)
[2023-03-19 13:07] LABS: Iron 51 ug/dL (37-170)
[2023-03-19 13:16] LABS: Percent Iron Saturation 11 % (20-50)
[2023-03-19 13:32] LABS: Carcinoembryonic Antigen 0.4 ng/mL (0.0-3.0)
[2023-03-19 13:43] LABS: Ferritin 9.91 ng/mL (11.1-264)
[2023-03-19 13:58] LABS: Folic Acid 15.1 ng/mL (2.76->20)
[2023-03-19 16:13] LABS: Glucose Point of Care 159 mg/dl (65-105)
[2023-03-19] MEDS: RIVAROXABAN 20 MG TABLET PO (17:00)
--- NOTE | 2023-03-19 18:49 | PM.IMPN ---
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 use Qualified Code(s): E11.9 - Type 2 diabetes mellitus without complications Code(s): E11.9 - Type 2 diabetes mellitus without complications Status: Acute (5) SOB (shortness of breath): Code(s): R06.02 - Shortness of breath Status: Acute (6) Pulmonary hypertension: Code(s): I27.20 - Pulmonary hypertension, unspecified Status: Acute (7) FREDI (obstructive sleep apnea): Code(s): G47.33 - Obstructive sleep apnea (adult) (pediatric) Status: Acute (8) Morbid obesity: Code(s): E66.01 - Morbid (severe) obesity due to excess calories Status: Acute (9) Mixed hyperlipidemia: Code(s): E78.2 - Mixed hyperlipidemia Status: Acute (10) History of colon cancer: Code(s): Z85.038 - Personal history of other malignant neoplasm of large intestine Status: Acute (11) History of colectomy: Code(s): Z90.49 - Acquired absence of other specified parts of digestive tract Status: Acute (12) Essential (primary) hypertension: Code(s): I10 - Essential (primary) hypertension Status: Acute (13) Chronic obstructive pulmonary disease: Qualifiers: COPD type: unspecified COPD Qualified Code(s): J44.9 - Chronic obstructive pulmonary disease, unspecified Code(s): J44.9 - Chronic obstructive pulmonary disease, unspecified Status: Acute (14) Chronic atrial fibrillation: Code(s): I48.20 - Chronic atrial fibrillation, unspecified Status: Acute (15) BMI 60.0-69.9, adult: Code(s): Z68.44 - Body mass index [BMI] 60.0-69.9, adult Status: Acute (16) Abnormal CT scan, chest: Code(s): R93.89 - Abnormal findings on diagnostic imaging of other specified body structures Status: Acute Plan Admit patient to IMU under full inpatient status Continuous cardiac tele-monitoring Patient given 10 mg IV Cardizem bolus x2 in the ER Patient started on IV Cardizem drip to be titrated to keep heart rate around 100 Patient likely has the myocardial demand ischemia caused by rapid AFib and shortness of breath EKG was done in ER which showed AFib with RVR as well as ST T wave abnormalities with high lateral leads consider with possible ischemia 1st set of cardiac enzymes is negative, following sets of cardiac enzymes were minimally elevated and are slowly downtrending Full 2-D echo with color-flow and doppler ordered to evaluate cardiac structure and function which showed left ventricle systolic function, hyperdynamic, with estimated EF greater than 70% Cardiology consultation for evaluation, further treatment recommendations and work up No evidence of Pneumonia or pulmonary embolism on chest x-ray and chest CTA CTA chest done which showed probable right paratracheal subcarinal lymphadenopathy pointing towards possible lymphoma or metastatic treatment recommendations Patient has a history prior colon cancer status post colostomy Oncology evaluation ordered who evaluated the patient and plan to follow-up with her as an outpatient Oncology workup ordered which showed severe iron deficiency anemia and vitamin B12 deficiency IV iron infusions ordered 300 mg daily for 3 days Subcutaneous cyanocobalamin injections ordered daily as well Continue with colostomy care on floor PT/OT evaluation ordered DC planning once
[2023-03-19 20:00] LABS: Glucose Point of Care 147 mg/dl (65-105)
[2023-03-19] MEDS: WATER FOR IRRIGATION, STERILE 1,000 ML BOTTLE 1000 ML (20:12)
[2023-03-19] MEDS: CYANOCOBALAMIN INJ 1,000 MCG/ML VIAL 1000 MCG IM (20:15)
[2023-03-19] MEDS: ACETAMINOPHEN 325 MG TABLET 650 MG PO (20:15)
[2023-03-20] VITALS (31 sets, daily range): BP systolic 104–137; BP diastolic 59–90; PULSE 70–110; RESP 20–24; TEMP 35.8–36.6; O2SAT 83–100
[2023-03-20] MEDS: ACETAMINOPHEN 325 MG TABLET 650 MG PO ×2 (02:19→22:15)
[2023-03-20 05:01] LABS: Basophils Percent Auto 0.6 % (0.2-1.2); Eosinophils Absolute Auto 0.1 K/mm3 (0-0.3); Eosinophils Percent Auto 2.8 % (0-4.4); Hematocrit 34.9 % (37.0-47.0); Hemoglobin 9.5 g/dL (12.0-15.0); Immature Granulocyte Absolute 0.03 K/mm3 (0.00-0.031); Immature Granulocyte Percent A 0.9 % (0-0.5); Lymphocytes Absolute Auto 0.81 K/mm3 (0.9-3.2); Lymphocytes Percent Auto 23.1 % (18.3-44.2); Mean Corpuscular HGB Conc 27.2 g/dl (32-36); Mean Corpuscular Hemoglobin 25.3 pg (26-34); Mean Corpuscular Volume 93.1 fl (80-100); Mean Platelet Volume 11.8 fl (7.4-10.4); Monocytes Absolute Auto 0.4 K/mm3 (0.1-0.6); Monocytes Percent Auto 11.7 % (2.6-8.5); Neutrophils Absolute Auto 2.1 K/mm3 (1.3-6.7); Neutrophils Percent Auto 60.9 % (45.5-73.1); Platelet Count Result 168 k/mm3 (150-375); Red Blood Count 3.75 M/mm3 (4.2-5.4); Red Cell Distribution Width 16.1 % (11.5-14.5); White Blood Count 3.5 K/mm3 (4.5-10.0)
[2023-03-20 05:10] LABS: Anion Gap 6 mmol/L (8-16); Blood Urea Nitrogen 14 mg/dL (7-17); Calcium 8.7 mg/dL (8.4-10.2); Carbon Dioxide 36 mmol/L (22-30); Chloride 99 mmol/L (98-107); Estimated CRCL calculation 124 ml/min; Estimated Glomerular Filt Rate > 60; Glucose 118 mg/dL (65-110); Potassium 3.9 mmol/L (3.4-5.0); Sodium 141 mmol/L (137-145)
[2023-03-20 05:50] LABS: Anisocytosis 1+ (NORMAL); Hypochromasia 1+ (NORMAL); Ovalocytes 1+ (NORMAL); Platelet Estimate Adequate (Adequate); Schistocytes None Seen (NORMAL)
[2023-03-20 09:01] LABS: Glucose Point of Care 111 mg/dl (65-105)
[2023-03-20] MEDS: dilTIAZem 100 MG/100 ML 100 MG/100 ML BAG 10 MG IV CONT ×3 (09:08→19:10)
[2023-03-20] MEDS: lisinopriL 20 MG TABLET PO ×2 (09:10→17:52)
[2023-03-20] MEDS: ASPIRIN 81 MG ENTERIC TABLET PO (09:10)
[2023-03-20] MEDS: ATORVASTATIN 10 MG TABLET PO (09:10)
[2023-03-20] MEDS: EZETIMIBE 10 MG TABLET BY MOUTH (09:10)
[2023-03-20] MEDS: PIOGLITAZONE HCL 15 MG TAB PO (09:10)
[2023-03-20] MEDS: OMEGA 3 POLYUNSAT FATTY ACIDS 1 GM CAP PO (09:11)
[2023-03-20] MEDS: TOLNAFTATE 1% POWDER 45 GM BTL 1 APPLIC TOPICAL (09:14)
[2023-03-20] MEDS: FLUTICASONE/SALMETEROL 115-21 MCG INHALER 1 PUFF 2 PUFF INHALATION ×2 (09:48→21:35)
[2023-03-20] MEDS: SOTALOL HCL 40 MG TABLET PO ×3 (10:22→20:15)
[2023-03-20] MEDS: SOTALOL HCL 80 MG TABLET PO ×2 (10:22→22:02)
[2023-03-20 11:12] LABS: Glucose Point of Care 171 mg/dl (65-105)
--- NOTE | 2023-03-20 13:01 | PM.PNCARD ---
Progress Note: A&P Assessment and Plan (1) Atrial fibrillation with rapid ventricular response: Code(s): I48.91 - Unspecified atrial fibrillation Status: Acute Assessment and Plan: Patient with a history of paroxysmal atrial fibrillation generally doing very well on sotalol 120 mg twice daily which she is absolutely compliant. She has been maintained on systemic anticoagulation Xarelto 20 mg daily. She denies missing a single dose in this regard. She presents with acute onset AFib with RVR in acute hypoxic respiratory failure now better stabilized with better control over heart rate. She remains in AFib on diltiazem infusion 15 milligrams/hour. Sotalol has yet to be resumed since admission from the ER. Once again, at length we discussed multiple options with regards to medical management and control of atrial fibrillation. We discussed alternative antiarrhythmic therapy, however, if discontinuation of sotalol were to be entertained she would require washout peripherally for least 4 days prior to initiation of alternative. That being said am not convinced this necessarily represents a complete failure of her sotalol yet she did have a significant recurrence in which he was highly symptomatic which raises this possibility. Discussed attempting to avoid concomitant AV estrella blocking agents with the use of sotalol, however, this may be reasonable as tolerated as an alternative. We also discussed cardioversion to restore sinus rhythm. After lengthy discussion with included the following. Given her underlying O2 dependence, COPD, morbid obesity, FREDI on CPAP proceeding with elective cardioversion in attempt to restore sinus rhythm with the assistance of Anesthesiology will be the best management strategy. All given additional sotalol 40 mg p.o. x1 to equal 160 mg this morning. Will observe response on diltiazem infusion. Plan will be to discharge home with sotalol 160 mg the morning 120 mg in the evening without additional AV estrella blocking agents. Discontinuation of sotalol in favor of alternative antiarrhythmic would require prolonged hospitalization for washout of sotalol prior to initiation of an alternative strategy. Therefore, we will proceed with her current medications with adjustments as above. Discussed at length the patient verbalized understanding. Patient will be NPO after midnight. She does not require JACQUIE guidance as she has not missed a single dose of anticoagulation for greater than 4 weeks. She may use CPAP for support during sedation with Anesthesiology tomorrow. (2) Elevated troponin: Code(s): R79.89 - Other specified abnormal findings of blood chemistry Status: Acute Assessment and Plan: Mild troponin elevation without anginal symptoms most likely consistent with demand ischemia in setting of AFib with RVR in hypoxic respiratory failure without suggestive of acute coronary syndrome and/or plaque rupture. Trend troponin, repeat 12 lead ECG. Patient has no known history of underlying CAD. Depending on troponin trend and echocardiogram may consider ischemic evaluation on outpatient basis. If significant troponin elevation is noted be on further recommendations regarding ischemic evaluation will be forthcoming. She is fully anticoagulated on Xarelto at this time nonetheless and if invasive angiography were felt to be warranted this would need to be held for 48 hours to reduce bleeding risk associated with invasive procedure (3) Acute respiratory failure with hypoxia and hypercapnia: Code(s): J96.01 - Acute respiratory failure with hypoxia; J96.02 - Acute respiratory failure with hypercapnia Status: Acute Assessment and Plan: Patient presented with acute life-threatening hypoxic respiratory failure in AFib with RVR requiring continuous BiPAP and additional O2 supplementation in now improved but remains above baseline on 5 L nasal cannula. Patient chronic respiratory failure on 3
[2023-03-20] MEDS: CYANOCOBALAMIN INJ 1,000 MCG/ML VIAL 1000 MCG IM (13:19)
[2023-03-20 16:22] LABS: Glucose Point of Care 161 mg/dl (65-105)
[2023-03-20] MEDS: RIVAROXABAN 20 MG TABLET PO (17:52)
--- NOTE | 2023-03-20 19:20 | P.PNIM_ITS ---
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 Qualified Code(s): E11.9 - Type 2 diabetes mellitus without complications Code(s): E11.9 - Type 2 diabetes mellitus without complications Status: Acute (5) SOB (shortness of breath): Code(s): R06.02 - Shortness of breath Status: Acute (6) Pulmonary hypertension: Code(s): I27.20 - Pulmonary hypertension, unspecified Status: Acute (7) FREDI (obstructive sleep apnea): Code(s): G47.33 - Obstructive sleep apnea (adult) (pediatric) Status: Acute (8) Morbid obesity: Code(s): E66.01 - Morbid (severe) obesity due to excess calories Status: Acute (9) Mixed hyperlipidemia: Code(s): E78.2 - Mixed hyperlipidemia Status: Acute (10) History of colon cancer: Code(s): Z85.038 - Personal history of other malignant neoplasm of large intestine Status: Acute (11) History of colectomy: Code(s): Z90.49 - Acquired absence of other specified parts of digestive tract Status: Acute (12) Essential (primary) hypertension: Code(s): I10 - Essential (primary) hypertension Status: Acute (13) Chronic obstructive pulmonary disease: Qualifiers: COPD type: unspecified COPD Qualified Code(s): J44.9 - Chronic obstructive pulmonary disease, unspecified Code(s): J44.9 - Chronic obstructive pulmonary disease, unspecified Status: Acute (14) Chronic atrial fibrillation: Code(s): I48.20 - Chronic atrial fibrillation, unspecified Status: Acute (15) BMI 60.0-69.9, adult: Code(s): Z68.44 - Body mass index [BMI] 60.0-69.9, adult Status: Acute (16) Abnormal CT scan, chest: Code(s): R93.89 - Abnormal findings on diagnostic imaging of other specified body structures Status: Acute Plan Admit patient to IMU under full inpatient status Continuous cardiac tele-monitoring Patient given 10 mg IV Cardizem bolus x2 in the ER Patient started on IV Cardizem drip to be titrated to keep heart rate around 100 Had sotalol and cardiac meds adjusted in an attempt to get her off of IV Cardizem drip Keep patient NPO after midnight for cardioversion in am Patient likely has the myocardial demand ischemia caused by rapid AFib and shortness of breath EKG was done in ER which showed AFib with RVR as well as ST T wave abnormalities with high lateral leads consider with possible ischemia 1st set of cardiac enzymes is negative, following sets of cardiac enzymes were minimally elevated and are slowly downtrending Full 2-D echo with color-flow and doppler ordered to evaluate cardiac structure and function which showed left ventricle systolic function, hyperdynamic, with estimated EF greater than 70% CTA chest done which showed probable right paratracheal subcarinal lymphadenopathy pointing towards possible lymphoma or metastatic treatment recommendations Patient has a history prior colon cancer status post colostomy Oncology evaluation ordered
[2023-03-20] MEDS: IRON SUCROSE COMPLEX 500 MG in SODIUM CHLORIDE 0.9% IV 250 ML 183.33 MG IVPB (20:15)
[2023-03-20 20:41] LABS: Glucose Point of Care 136 mg/dl (65-105)
[2023-03-21] VITALS (26 sets, daily range): BP systolic 99–150; BP diastolic 62–79; PULSE 50–106; RESP 16–22; TEMP 36–36.8; O2SAT 88–100
[2023-03-21] MEDS: dilTIAZem 100 MG/100 ML 100 MG/100 ML BAG 10 MG IV CONT ×2 (04:08→11:08)
[2023-03-21] MEDS: ACETAMINOPHEN 325 MG TABLET 650 MG PO ×2 (04:09→21:08)
[2023-03-21 05:37] LABS: Basophils Percent Auto 0.5 % (0.2-1.2); Eosinophils Absolute Auto 0.1 K/mm3 (0-0.3); Eosinophils Percent Auto 3.2 % (0-4.4); Hematocrit 35.6 % (37.0-47.0); Immature Granulocyte Absolute 0.04 K/mm3 (0.00-0.031); Immature Granulocyte Percent A 0.9 % (0-0.5); Lymphocytes Absolute Auto 0.84 K/mm3 (0.9-3.2); Lymphocytes Percent Auto 18.9 % (18.3-44.2); Mean Corpuscular HGB Conc 28.1 g/dl (32-36); Mean Corpuscular Hemoglobin 25.6 pg (26-34); Mean Platelet Volume 12.4 fl (7.4-10.4); Monocytes Absolute Auto 0.4 K/mm3 (0.1-0.6); Monocytes Percent Auto 9.7 % (2.6-8.5); Neutrophils Percent Auto 66.8 % (45.5-73.1); Platelet Count Result 197 k/mm3 (150-375); Red Blood Count 3.91 M/mm3 (4.2-5.4); Red Cell Distribution Width 16.2 % (11.5-14.5); White Blood Count 4.4 K/mm3 (4.5-10.0)
[2023-03-21 05:51] LABS: Anion Gap 5 mmol/L (8-16); Blood Urea Nitrogen 15 mg/dL (7-17); Calcium 8.7 mg/dL (8.4-10.2); Carbon Dioxide 36 mmol/L (22-30); Chloride 98 mmol/L (98-107); Estimated CRCL calculation 109 ml/min; Estimated Glomerular Filt Rate > 60; Glucose 127 mg/dL (65-110); Potassium 4.2 mmol/L (3.4-5.0); Sodium 139 mmol/L (137-145)
[2023-03-21 06:01] LABS: Anisocytosis 1+ (NORMAL); Ovalocytes 1+ (NORMAL); Platelet Estimate Adequate (Adequate)
[2023-03-21 06:02] LABS: Schistocytes None Seen (NORMAL)
[2023-03-21 08:15] LABS: Glucose Point of Care 111 mg/dl (65-105)
[2023-03-21] MEDS: FLUTICASONE/SALMETEROL 115-21 MCG INHALER 1 PUFF 2 PUFF INHALATION ×2 (08:42→20:40)
--- NOTE | 2023-03-21 10:00 | ECG_ITS ---
Measurements Intervals [place] Rate: 85 P: ME: 0 QRS: -17 QRSD: 106 T: 0 QT: 333 QTc: 397 Interpretive Statements ATRIAL FIBRILLATION MODERATE VOLTAGE CRITERIA FOR LVH, CONSIDER NORMAL VARIANT [MEETS CRITERIA IN ONE OF: R(aVL), S(V1), R(V5), R(V5/V6)+S(V1)] NONSPECIFIC ST AND T-WAVE ABNORMALITY ABNORMAL RHYTHM ECG COMPARED TO ECG 03/18/2023 13:59:55 NO SIGNIFICANT CHANGES Electronically Signed On 03-21-2023 14:01:08 WAISTBAND SETTER by Nory Moe M.D.
[2023-03-21] MEDS: ASPIRIN 81 MG ENTERIC TABLET PO (11:07)
[2023-03-21] MEDS: ATORVASTATIN 10 MG TABLET PO (11:07)
[2023-03-21] MEDS: CYANOCOBALAMIN INJ 1,000 MCG/ML VIAL 1000 MCG IM (11:08)
[2023-03-21] MEDS: OMEGA 3 POLYUNSAT FATTY ACIDS 1 GM CAP PO (11:08)
[2023-03-21] MEDS: SOTALOL HCL 80 MG TABLET PO ×2 (11:08→21:08)
[2023-03-21] MEDS: TOLNAFTATE 1% POWDER 45 GM BTL 1 APPLIC TOPICAL (11:08)
[2023-03-21] MEDS: lisinopriL 20 MG TABLET PO ×2 (11:09→16:48)
[2023-03-21] MEDS: SOTALOL HCL 40 MG TABLET PO ×2 (11:09→21:08)
[2023-03-21] MEDS: EZETIMIBE 10 MG TABLET BY MOUTH (11:09)
[2023-03-21 11:54] LABS: Glucose Point of Care 119 mg/dl (65-105)
--- NOTE | 2023-03-21 13:29 | WPDANESEPPF ---
Anes - Initial Pre Proc Eval Procedure: Operation Date: 03/21/23 13:30 Proposed Procedures p Electrical Cardioversion - Nory Moe MD Date/Time: 03/21/23 13:29 Surgeon: Jorge Ma MD Pre Op Diagnosis: Afib w RVR Patient Data Age: 62 Gender: F Height: 1.65 m Weight: 191.2 kg Last Vital Signs Temp 36.6 C 03/21/23 04:00 Pulse 88 03/21/23 11:09 Resp 20 03/21/23 04:00 BP 150/79 H 03/21/23 04:00 Pulse Ox 92 03/21/23 08:00 O2 Del Method Nasal Cannula 03/21/23 08:00 O2 Flow Rate 5 03/21/23 08:00 FiO2 48 03/19/23 19:42 Allergies Allergy/AdvReac Type Severity Reaction Status Date / Time No Known Allergies Allergy Verified 03/18/23 02:57 Home Medications Medication Instructions Recorded Confirmed Type lancets #50 ea 01/02/19 01/08/23 History sotalol 120 mg tablet 120 mg PO Q12H 01/20/19 03/18/23 History blood sugar diagnostic (OneTouch See Rx Instructions .Route 06/07/20 01/08/23 Rx Verio test strips) .COMPLEX #100 ea omega 9-jph-lpp-fish oil 300 1 cap PO DAILY 11/01/20 03/18/23 History mg-1,000 mg capsule (Fish Oil) rivaroxaban 20 mg tablet (Xarelto) 20 mg PO DAILY 10/12/21 03/18/23 History Symbicort 80 mcg-4.5 mcg/actuation See Rx Instructions .Route 03/15/22 03/18/23 Rx HFA aerosol inhaler .COMPLEX #11 grams (budesonide-formoterol) aspirin 81 mg tablet,delayed 81 mg PO DAILY 06/27/22 03/18/23 History release (Adult Low Dose Aspirin) albuterol sulfate 90 mcg/actuation 1 - 2 inh inhalation Q4-6H PRN 07/02/22 03/18/23 Rx aerosol inhaler (Ventolin HFA) shortness of breath or wheezing #8.5 grams ezetimibe 10 mg tablet See Rx Instructions .Route 01/08/23 03/18/23 Rx .COMPLEX #90 tabs atorvastatin 10 mg tablet 10 mg PO DAILY 03/18/23 03/18/23 History lisinopril 20 mg tablet 20 mg PO BID 03/18/23 03/18/23 History metformin 1,000 mg tablet 1,000 mg PO BID 03/18/23 03/18/23 History pioglitazone 15 mg tablet 15 mg PO DAILY 03/18/23 03/18/23 History Laboratory Tests 03/20/23 03/20/23 03/21/23 15:20 20:39 04:37 WBC 4.4 L K/mm3 (4.5-10.0) RBC 3.91 L M/mm3 (4.2-5.4) Hgb 10.0 L g/dL (12.0-15.0) Hct 35.6 L % (37.0-47.0) MCV 91.0 fl (80-100) MCH 25.6 L pg (26-34) MCHC 28.1 L g/dl (32-36) RDW 16.2 H % (11.5-14.5) Plt Count 197 k/mm3 (150-375) MPV 12.4 H fl (7.4-10.4) Immature Gran % (Auto) 0.9 H % (0-0.5) Neut % (Auto) 66.8 % (45.5-73.1) Lymph % (Auto) 18.9 % (18.3-44.2) [place] % (Auto) 9.7 H % (2.6-8.5) Eos % (Auto) 3.2 % (0-4.4) Baso % (Auto) 0.5 % (0.2-1.2) Lymph # (Auto) 0.84 L K/mm3 (0.9-3.2) [place] # (Auto) 0.4 K/mm3 (0.1-0.6) Eos # (Auto) 0.1 K/mm3 (0-0.3) Baso # (Auto) 0.0 K/mm3 (0.0-0.1) Abs Immat Gran (auto) 0.04 H K/mm3 (0.00-0.031) Absolute Neuts (auto) 3.0 K/mm3 (1.3-6.7) Absolute Nucleated RBC 0.0 K/mm3 (0.0-0.012) Nucleated RBC % 0.0 % (0.0-0.2) Platelet Estimate Adequate (Adequate) Anisocytosis 1+ (NORMAL) Ovalocytes 1+ (NORMAL) Schistocytes None seen (NORMAL) Sodium 139 mmol/L (137-145) Potassium 4.2 mmol/L (3.4-5.0) Chloride 98 mmol/L (98-107) Carbon Dioxide 36 H mmol/L (22-30) Anion Gap 5 L mmol/L (8-16) BUN 15 mg/dL (7-17) Creatinine 0.80 mg/dL (0.7-1.0) Estim Creat Clear Calc 109 ml/min Estimated GFR > 60 (59 - ) Glucose 127 H mg/dL (65-110) POC Capillary Glucose 161 H mg/dl 136 H mg/dl (65-105) (65-105) Calcium 8.7 mg/dL (8.4-10.2) 03/21/23 03/21/23 07:49 11:36 WBC RBC Hgb Hct MCV MCH MCHC
--- NOTE | 2023-03-21 13:34 | ECG_ITS ---
Measurements Intervals [place] Rate: 54 P: -13 RI: 153 QRS: -19 QRSD: 90 T: 5 QT: 433 QTc: 411 Interpretive Statements SINUS BRADYCARDIA COMPARED TO ECG 03/21/2023 10:14:22 SINUS BRADYCARDIA NOW PRESENT Electronically Signed On 03-21-2023 14:08:45 STEAM POWERPLANT SUPERVISOR by Nory Moe M.D.
--- NOTE | 2023-03-21 13:47 | P.PCNCVR_ITS ---
Cardioversion Cardioversion Date of procedure: 03/21/23 Procedure: Cardioversion Pre-op diagnosis: Atrial fibrillation with RVR Post-op diagnosis: Other (Sinus bradycardia ) Indications: Atrial fibrillation with RVR Description of procedure: Patient brought to shift lab technician. Defibrillator pads placed in an anteroposterior position. Time out performed by HEIKE Maria. Sedation administered by the Anesthesia team. Once patient was adequately sedated, synchronized electrical cardioversion was performed with 1 shock at 250 joules with successful cardioversion to sinus bradycardia. Sedation: Sedation administered by the Anesthesia team. Findings: Successful cardioversion to sinus bradycardia with 1 shock at 250 joules. Conclusion: Successful cardioversion to sinus bradycardia with 1 shock at 250 joules.
--- NOTE | 2023-03-21 13:49 | PM.PNCARD ---
Progress Note: A&P Assessment and Plan (1) Atrial fibrillation with rapid ventricular response: Code(s): I48.91 - Unspecified atrial fibrillation Status: Acute Assessment and Plan: Underwent successful cardioversion to sinus bradycardia. Continue Sotalol 120mg BID. Continue Xarelto. Diltiazem drip discontinued prior to cardioversion, will not restart after cardioversion. Heart rates after cardioversion are in low-mid 50s, therefore, will hold off on adding any other agents at this time, however, may consider adding PO Diltiazem depending on how her heart rates do or increasing the dose of Sotalol. (2) Elevated troponin: Code(s): R79.89 - Other specified abnormal findings of blood chemistry Status: Acute Assessment and Plan: Mild troponin elevation without anginal symptoms most likely consistent with demand ischemia in setting of AFib with RVR in hypoxic respiratory failure without suggestive of acute coronary syndrome and/or plaque rupture. (3) Acute respiratory failure with hypoxia and hypercapnia: Code(s): J96.01 - Acute respiratory failure with hypoxia; J96.02 - Acute respiratory failure with hypercapnia Status: Acute Assessment and Plan: Wean oxygen as tolerated. (4) Encounter for monitoring sotalol therapy: Code(s): Z51.81 - Encounter for therapeutic drug level monitoring; Z79.899 - Other chcf (current) drug therapy Status: Acute Assessment and Plan: Monitor QT interval to assess for toxicity. Monitor electrolytes renal function which have been stable thus far. (5) FREDI (obstructive sleep apnea): Code(s): G47.33 - Obstructive sleep apnea (adult) (pediatric) Status: Acute Assessment and Plan: Continue CPAP management for stabilization and treatment of FREDI. Patient has excellent compliance on outpatient basis. 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 Continue to monitor blood sugars were a routine basis. Continue pioglitazone 15 mg daily. (7) Mixed hyperlipidemia: Code(s): E78.2 - Mixed hyperlipidemia Status: Acute Assessment and Plan: Continue Zetia 10 mg daily and atorvastatin 10 mg at bedtime. Subjective Date/time seen: 03/21/23 13:49 Interval history: Reason for visit: Atrial fibrillation with RVR HPI: Patient is a pleasant 62-year-old female followed by Dr. Montgomery as an outpatient with a history of paroxysmal atrial fibrillation on sotalol 120 mg twice daily and Rivaroxaban 20 mg daily who states she was in her usual state of health when she suddenly became very short of breath with sensation of rapid palpitations found to be hypoxic with O2 saturation 70% on CPAP at home upon arrival of EMS.? She was found to be in AFib with RVR heart rate 190 beats per minute.? EMS administered amiodarone 150 mg IV, started on BiPAP and transferred to the emergency department which she was given IV diltiazem boluses then started on a continuous infusion currently on 15 milligrams/hour.? Her heart rate better controlled in AFib general the 90s to low 100s.? She states she is feeling much improved at this time.? She she wears chronic O2 3 L at rest 5 L activity currently on 5 L at rest.? She denies recent illnesses, sick contacts, worsening shortness of breath, COPD exacerbation although she felt that was what was happening except that it began abruptly.? She did later in passing described increasing her home O2 from 3-3.5 L due to lower oxygen saturations in the upper 80s but blamed that on nasal congestion.? Otherwise she denied palpitations, chest pain dizziness, near-syncope, syncope, fall
[2023-03-21 15:47] LABS: Glucose Point of Care 128 mg/dl (65-105)
[2023-03-21] MEDS: RIVAROXABAN 20 MG TABLET PO (16:48)
[2023-03-21] MEDS: PIOGLITAZONE HCL 15 MG TAB PO (16:49)
--- NOTE | 2023-03-21 17:28 | PM.IMPN ---
Progress Note: A&P Assessment and Plan (1) Acute respiratory failure with hypoxia and hypercapnia: Code(s): J96.01 - Acute respiratory failure with hypoxia; J96.02 - Acute respiratory failure with hypercapnia Status: Acute (2) Atrial fibrillation with rapid ventricular response: Code(s): I48.91 - Unspecified atrial fibrillation Status: Acute (3) Elevated troponin: Code(s): R79.89 - Other specified abnormal findings of blood chemistry Status: Acute (4) Type 2 diabetes mellitus without complication: Qualifiers: Diabetes mellitus manager intermediate insulin use: without nursing home use Qualified Code(s): E11.9 - Type 2 diabetes mellitus without complications Code(s): E11.9 - Type 2 diabetes mellitus without complications Status: Acute (5) SOB (shortness of breath): Code(s): R06.02 - Shortness of breath Status: Acute (6) Pulmonary hypertension: Code(s): I27.20 - Pulmonary hypertension, unspecified Status: Acute (7) FREDI (obstructive sleep apnea): Code(s): G47.33 - Obstructive sleep apnea (adult) (pediatric) Status: Acute (8) Morbid obesity: Code(s): E66.01 - Morbid (severe) obesity due to excess calories Status: Acute (9) Mixed hyperlipidemia: Code(s): E78.2 - Mixed hyperlipidemia Status: Acute (10) History of colon cancer: Code(s): Z85.038 - Personal history of other malignant neoplasm of large intestine Status: Acute (11) History of colectomy: Code(s): Z90.49 - Acquired absence of other specified parts of digestive tract Status: Acute (12) Essential (primary) hypertension: Code(s): I10 - Essential (primary) hypertension Status: Acute (13) Chronic obstructive pulmonary disease: Qualifiers: COPD type: unspecified COPD Qualified Code(s): J44.9 - Chronic obstructive pulmonary disease, unspecified Code(s): J44.9 - Chronic obstructive pulmonary disease, unspecified Status: Acute (14) Chronic atrial fibrillation: Code(s): I48.20 - Chronic atrial fibrillation, unspecified Status: Acute (15) BMI 60.0-69.9, adult: Code(s): Z68.44 - Body mass index [BMI] 60.0-69.9, adult Status: Acute (16) Abnormal CT scan, chest: Code(s): R93.89 - Abnormal findings on diagnostic imaging of other specified body structures Status: Acute Plan Admit patient to IMU under full inpatient status Continuous cardiac tele-monitoring Patient given 10 mg IV Cardizem bolus x2 in the ER Patient started on IV Cardizem drip to be titrated to keep heart rate around 100 Had sotalol and cardiac meds adjusted in an attempt to get her off of IV Cardizem drip Keep patient NPO after midnight for cardioversion in am Patient likely has the myocardial demand ischemia caused by rapid AFib and shortness of breath EKG was done in ER which showed AFib with RVR as well as ST T wave abnormalities with high lateral leads consider with possible ischemia 1st set of cardiac enzymes is negative, following sets of cardiac enzymes were minimally elevated and are slowly downtrending Full 2-D echo with color-flow and doppler ordered to evaluate cardiac structure and function which showed left ventricle systolic function, hyperdynamic, with estimated EF greater than 70% CTA chest done which showed probable right paratracheal subcarinal lymphadenopathy pointing towards possible lymphoma or metastatic treatment recommendations Patient has a history prior colon cancer status post colostomy Oncology evaluation ordered who evaluated the patient and plan to follow-up with her as an outpatient Oncology workup ordered which showed severe iron deficiency anemia and vitamin B12 deficiency IV iron infusions ordered which she initially refused because of constipation affect affecting her colostomy Spoke with patient in detail about benefits of the having IV iron Patient started on anti constipatio
[2023-03-21 20:26] LABS: Glucose Point of Care 154 mg/dl (65-105)
[2023-03-21] MEDS: IRON SUCROSE COMPLEX 500 MG in SODIUM CHLORIDE 0.9% IV 250 ML 79 MG IVPB (21:07)
[2023-03-22] VITALS (11 sets, daily range): BP systolic 119–132; BP diastolic 54–61; PULSE 53–63; RESP 15–20; TEMP 36.3–36.6; O2SAT 91–97
[2023-03-22] MEDS: ACETAMINOPHEN 325 MG TABLET 650 MG PO (02:11)
[2023-03-22 05:56] LABS: Vitamin B12 > 1000.0 pg/mL (239-931)
--- NOTE | 2023-03-22 07:19 | WPDANESPN ---
Anes - Prog Note Post-Op Date/Time: 03/22/23 07:19 Cardiovascular status: normal Respiratory status: normal Airway patency: baseline Mental status: baseline Post-Op hydration status: normal Vital Signs: Last Vital Signs Temp 97.7 F 03/22/23 04:00 Pulse 59 L 03/22/23 06:00 Resp 20 03/22/23 04:00 BP 130/57 L 03/22/23 04:00 Pulse Ox 91 03/22/23 06:01 O2 Del Method Nasal Cannula 03/22/23 06:01 O2 Flow Rate 4.5 03/22/23 06:01 FiO2 48 03/19/23 19:42 Pain Score (VAS): 0 I/O: Intake & Output 03/21/23 03/21/23 03/22/23 15:59 23:59 07:59 Intake Total 100 490 550 Output Total 750 275 Balance 100 -260 275 Laboratory Tests 03/21/23 04:37 03/21/23 04:37 03/21/23 03/21/23 03/21/23 07:49 11:36 15:36 POC Capillary Glucose 111 H 119 H 128 H Vitamin B12 03/21/23 03/22/23 19:48 03:53 POC Capillary Glucose 154 H Vitamin B12 > 1000.0 H Post-procedural complaints: none Patient Feedback: Patient satisfied with anesthetic care.
[2023-03-22 08:22] LABS: Glucose Point of Care 125 mg/dl (65-105)
[2023-03-22] MEDS: FLUTICASONE/SALMETEROL 115-21 MCG INHALER 1 PUFF 2 PUFF INHALATION (09:02)
[2023-03-22] MEDS: SOTALOL HCL 80 MG TABLET PO (10:00)
[2023-03-22] MEDS: EZETIMIBE 10 MG TABLET BY MOUTH (10:00)
[2023-03-22] MEDS: ASPIRIN 81 MG ENTERIC TABLET PO (10:00)
[2023-03-22] MEDS: SOTALOL HCL 40 MG TABLET PO (10:00)
[2023-03-22] MEDS: OMEGA 3 POLYUNSAT FATTY ACIDS 1 GM CAP PO (10:00)
[2023-03-22] MEDS: PIOGLITAZONE HCL 15 MG TAB PO (10:00)
[2023-03-22] MEDS: lisinopriL 20 MG TABLET PO (10:01)
[2023-03-22] MEDS: ATORVASTATIN 10 MG TABLET PO (10:01)
[2023-03-22] MEDS: TOLNAFTATE 1% POWDER 45 GM BTL 1 APPLIC TOPICAL (10:09)
--- NOTE | 2023-03-22 11:06 | PM.PNCARD ---
Progress Note: A&P Assessment and Plan (1) Atrial fibrillation with rapid ventricular response: Code(s): I48.91 - Unspecified atrial fibrillation Status: Acute Plan 62-year-old lady with: Paroxysmal atrial fibrillation being treated with advanced dose sotalol as well as systemic anticoagulation. Despite compliance with her medication she did have a symptomatic recurrence of her arrhythmia necessitating did DC cardioversion yesterday. She is stable for discharge today. Told the patient that we may need to consider EP consultation if this becomes a recurrent issue because her AFib is not well tolerated hemodynamically and despite the sotalol she becomes quite tachycardic in AF. Today however she is stable maintaining sinus rhythm and is a good candidate for discharge. I will ensure that appropriate follow-up is scheduled in my office Jesus Montgomery MD [facility] Subjective Date/time seen: Date of service: 03/22/23 11:06 Interval history: Reason for visit: Atrial fibrillation with RVR HPI: Patient is a pleasant 62-year-old female followed by Dr. Montgomery as an outpatient with a history of paroxysmal atrial fibrillation on sotalol 120 mg twice daily and Rivaroxaban 20 mg daily who states she was in her usual state of health when she suddenly became very short of breath with sensation of rapid palpitations found to be hypoxic with O2 saturation 70% on CPAP at home upon arrival of EMS.? She was found to be in AFib with RVR heart rate 190 beats per minute.? EMS administered amiodarone 150 mg IV, started on BiPAP and transferred to the emergency department which she was given IV diltiazem boluses then started on a continuous infusion currently on 15 milligrams/hour.? Her heart rate better controlled in AFib general the 90s to low 100s.? She states she is feeling much improved at this time.? She she wears chronic O2 3 L at rest 5 L activity currently on 5 L at rest.? She denies recent illnesses, sick contacts, worsening shortness of breath, COPD exacerbation although she felt that was what was happening except that it began abruptly.? She did later in passing described increasing her home O2 from 3-3.5 L due to lower oxygen saturations in the upper 80s but blamed that on nasal congestion.? Otherwise she denied palpitations, chest pain dizziness, near-syncope, syncope, falls.? She states she has been absolutely compliant with sotalol and Xarelto as well as CPAP.? Initial troponin was negative, subsequent 0.109 but without chest pain or other anginal symptoms.? ProBNP [address] angiogram of the chest revealed no evidence of pulmonary embolism, aortic dissection or aneurysm, atelectatic changes otherwise clear lungs without pulmonary vascular congestion or infiltrate.? There was mention of right paratracheal subcarinal lymphadenopathy which is otherwise nonspecific recommendation for follow-up CT.? ECG revealed AFib with RVR with ST abnormality consider ischemia in the lateral leads.? Patient has been hemodynamically stable thus far.? Electrolytes stable potassium 4.4 sodium 140 creatinine 0.9 although magnesium was low 1.5 which was replaced with 2 g magnesium sulfate. Date of service 03/20: Patient feels okay.? Denies shortness of breath at rest.? No palpitations or chest pain.? Remains in AFib with RVR on diltiazem infusion and oral sotalol.? No new issues overnight.? Remains on 5 L nasal cannula. Date of service 03/21: Cardioversion today. Date of service 03/22/2023: The patient is asymptomatic today and feels well would like to be discharged. She is maintaining sinus rhythm following DC cardioversion yesterday. Exam Narrative: General: Pleasant morbidly obese female sitting upright in bed, well developed, alert and oriented x3. No apparent distress, comfortable, pleasant, and cooperative. Head: atraumatic, normocephalic Eyes: EOM intact, sclerae anicteric, conjunctivae unremarkable Ears/Nose: external inspe
[2023-03-22 11:35] LABS: Glucose Point of Care 155 mg/dl (65-105)
--- NOTE | 2023-03-22 13:32 | PCPTNOTE ---
Attempted to see patient for PT, however patient declined due to anticipated discharge.
--- NOTE | 2023-03-22 14:40 | PM.DS ---
DS: Admitting Diagnosis Discharge Date 03/22/2023: Admitting Diagnosis Acute respiratory failure with hypoxia and hypercapnia Atrial fibrillation with RVR Pulmonary hypertension Super morbid obesity DS: Discharge Diagnosis Discharge Diagnosis (1) Lymphadenopathy: Code(s): R59.1 - Generalized enlarged lymph nodes Status: Acute (2) Encounter for monitoring sotalol therapy: Code(s): Z51.81 - Encounter for therapeutic drug level monitoring; Z79.899 - Other usp (current) drug therapy Status: Acute (3) Abnormal CT scan, chest: Code(s): R93.89 - Abnormal findings on diagnostic imaging of other specified body structures Status: Acute (4) Acute respiratory failure with hypoxia and hypercapnia: Code(s): J96.01 - Acute respiratory failure with hypoxia; J96.02 - Acute respiratory failure with hypercapnia Status: Acute (5) Atrial fibrillation with rapid ventricular response: Code(s): I48.91 - Unspecified atrial fibrillation Status: Acute (6) Elevated troponin: Code(s): R79.89 - Other specified abnormal findings of blood chemistry Status: Acute (7) Type 2 diabetes mellitus without complication: Qualifiers: Diabetes mellitus usp insulin use: without exterminator termite use Qualified Code(s): E11.9 - Type 2 diabetes mellitus without complications Code(s): E11.9 - Type 2 diabetes mellitus without complications Status: Acute (8) SOB (shortness of breath): Code(s): R06.02 - Shortness of breath Status: Acute (9) Pulmonary hypertension: Code(s): I27.20 - Pulmonary hypertension, unspecified Status: Acute (10) Psoriasis: Code(s): L40.9 - Psoriasis, unspecified Status: Acute (11) FREDI (obstructive sleep apnea): Code(s): G47.33 - Obstructive sleep apnea (adult) (pediatric) Status: Acute (12) Morbid obesity: Code(s): E66.01 - Morbid (severe) obesity due to excess calories Status: Acute (13) Mixed hyperlipidemia: Code(s): E78.2 - Mixed hyperlipidemia Status: Acute (14) History of colon cancer: Code(s): Z85.038 - Personal history of other malignant neoplasm of large intestine Status: Acute (15) History of colectomy: Code(s): Z90.49 - Acquired absence of other specified parts of digestive tract Status: Acute (16) Essential (primary) hypertension: Code(s): I10 - Essential (primary) hypertension Status: Acute (17) Chronic obstructive pulmonary disease: Qualifiers: COPD type: unspecified COPD Qualified Code(s): J44.9 - Chronic obstructive pulmonary disease, unspecified Code(s): J44.9 - Chronic obstructive pulmonary disease, unspecified Status: Acute (18) Chronic atrial fibrillation: Code(s): I48.20 - Chronic atrial fibrillation, unspecified Status: Acute (19) Body mass index (bmi) 70 or greater, adult: Onset Date: 12/11/17 Code(s): Z68.45 - Body mass index [BMI] 70 or greater, adult Status: Acute DS: Summary Hospital Course Reason for hospitalization: Patient brought to the ER for by EMS for acute shortness of breath and palpitations Hospital Course: H&P: HPI History of Present Illness Date/Time: 03/18/23? 11:02 Chief Complaint: Patient brought to the ER for by EMS for acute shortness of breath and palpitations Narrative: 62 years old white female with morbid obesity and chronic medical issues was sitting at her so fall at home when she suddenly developed shortness of breath. EMS was called and patient was brought to the ER for evaluation.? She was initially satting 70% on her CPAP at home.? She had AFib with RVR with heart rate of 190.? She received amiodarone 150 mg IV and was started on BiPAP in the ER.? Received 2 loading doses of IV Cardizem and started on Cardizem drip for better control of her heart rate.? She denies any chest pain although she has minima
[2023-03-22 16:13] LABS: Methylmalonic Acid 319 nmol/L (87-318)
[2023-03-25 11:07] LABS: Soluble Transferrin Receptor 3.01 mg/L (0.76-1.76)
== END 2023-03-22 15:39 | disposition home or self-care (01) | DRG 308 ==
LOC: ANHED 03-18 06:50 → ANHIMU 03-18 06:58
PROVIDERS: Internal Medicine; Nurse Practitioner Family; Admitting Provider Internal Medicine; Emergency Provider Emergency Medicine; PCP Family Medicine; Visit Provider Family Medicine
PROC: 5A2204Z Restoration of Cardiac Rhythm, Single (ICD-10-PCS; principal; 2023-03-21 13:30)
DX: I48.0 Paroxysmal atrial fibrillation (principal); J96.01 Acute respiratory failure with hypoxia; J96.02 Acute respiratory failure with hypercapnia; Z68.45 Body mass index [BMI] 70 or greater, adult; I24.89 Other forms of acute ischemic heart disease; I11.0 Hypertensive heart disease with heart failure; I50.9 Heart failure, unspecified; D50.8 Other iron deficiency anemias; E53.8 Deficiency of other specified B group vitamins; R59.1 Generalized enlarged lymph nodes; G47.33 Obstructive sleep apnea (adult) (pediatric); E66.01 Morbid (severe) obesity due to excess calories; R93.89 Abnormal findings on diagnostic imaging of other specified body structures; E78.2 Mixed hyperlipidemia; J44.9 Chronic obstructive pulmonary disease, unspecified; Z90.49 Acquired absence of other specified parts of digestive tract; Z86.16 Personal history of COVID-19; Z85.038 Personal history of other malignant neoplasm of large intestine; Z93.3 Colostomy status; Z99.81 Dependence on supplemental oxygen
CPT/HCPCS: 36415; 36600; 71045; 71275; 80048; 80053; 81001; 82375; 82378; 82550; 82607; 82728; 82746; 82805; 82948; 83050; 83540; 83550; 83605; 83690; 83735; 83880; 83921; 84100; 84238; 84443; 84484; 85025; 85380; 85610; 85730; 92960; 93005; 94640; 96365; 96366; 96367; 97161; 99291; A9270; C8929; J1756; J2704; J3420; J3475; J7050; Q9957; Q9967

== ENCOUNTER 2023-04-22 13:27 | Outpatient (CLI) | payer MEDICARE, SELFPAY ==
[2023-04-22 14:06] LABS: Hematocrit 41.2 % (37.0-47.0); Hemoglobin 11.2 g/dL (12.0-15.0)
[2023-04-22 14:19] LABS: Iron 101 ug/dL (37-170)
[2023-04-22 14:28] LABS: Percent Iron Saturation 23 % (20-50)
== END 2023-04-22 13:28 | disposition home or self-care (01) ==
PROVIDERS: PCP Family Medicine; Visit Provider Nurse Practitioner
DX: D50.9 Iron deficiency anemia, unspecified (principal); E53.8 Deficiency of other specified B group vitamins
CPT/HCPCS: 36415; 82607; 83540; 83550; 85014; 85018